=== PATIENT | female | born 1965 ===

== ENCOUNTER → 2017-07-16 | Outpatient (REF) ==
[~2017-07-16] MED LIST: MULTI VITAMINS1 TAB PO
== END ==
LOC: WSOH 13:03
DX: Z02.89 Encounter for other administrative examinations (principal)

== ENCOUNTER → 2018-01-06 | Outpatient (CLI) | payer BC | LOC: MC.RAD 08:00 | DX: Z12.31 Encounter for screening mammogram for malignant neoplasm of breast (principal) ==

== ENCOUNTER → 2019-03-02 | Outpatient (CLI) | payer BC | LOC: MC.RAD 08:03 | DX: Z12.31 Encounter for screening mammogram for malignant neoplasm of breast (principal) ==

== ENCOUNTER → 2020-04-01 | Outpatient (CLI) | payer BC | LOC: MC.RAD 09:00 | DX: Z12.31 Encounter for screening mammogram for malignant neoplasm of breast (principal) ==

== ENCOUNTER → 2021-04-07 | Outpatient (CLI) | payer BC | LOC: MC.RAD 10:53 | DX: Z12.31 Encounter for screening mammogram for malignant neoplasm of breast (principal) ==

== ENCOUNTER → 2022-05-15 | Outpatient (CLI) | payer BC | LOC: MC.RAD 09:25 | DX: Z12.31 Encounter for screening mammogram for malignant neoplasm of breast (principal) ==

== ENCOUNTER → 2024-07-28 | Outpatient (CLI) | payer BC | LOC: MC.RAD 11:07 | DX: Z12.31 Encounter for screening mammogram for malignant neoplasm of breast (principal) ==